=== PATIENT | male | born 1945 | race Caucasian/White ===

== ENCOUNTER → 2017-06-03 | Day surgery (SDC) | payer MEDICARE ==
[~2017-06-03] MED LIST: ADDE20TA OR; ARIP1TAB46; ASPI325T PO; ASPI81 PO; BUPIVACAINE/EPINEPHRINE 0.25% 50 ML VIAL ONE; BUPIVACAINE/EPINEPHRINE 0.5% 50 ML VIAL ONE; CRES20TA OR; KLOR20TA6 PO; LACTATED RINGER'S 1000 ML INJ 1,000 ML ONE; MIDAZOLAM HCL 2 MG/2 ML VIAL ONE; NADO20TA OR; NIFE60TA3 PO; ONDANSETRON HCL 4 MG/2 ML VIAL IV PUSH ONE; PROPOFOL 200 MG/20 ML AMP IV ONE; QUIN20TA22 PO; TAB-TAB PO; VIIB40TA PO; ZOLP10TA3; ceFAZolin INJ 1,000 MG VIAL ONE
--- NOTE | 2017-06-03 11:19 | TN ---
cc: ISIAH SIMPSON M.D. DATE OF SURGERY: 06/03/2017 PREOPERATIVE DIAGNOSIS 1. Malignant melanoma left posterior neck 0.75 mm. 2. Basal cell carcinoma left shoulder. 3. Pigmented lesion left medial shoulder. PROCEDURE PERFORMED 1. Wide local excision malignant melanoma left posterior neck 4 x 2 cm. 2. Wide local excision basal cell carcinoma left shoulder 4 x 2 cm. 3. Wide local excision pigmented lesion left shoulder 3 x 2 cm. SURGEON Isiah Simpson MD ANESTHESIA General LMA. COMPLICATIONS None. INDICATION FOR PROCEDURE Mr. 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 These lesions demonstrated a malignant melanoma on the left posterior neck, invasive basal cell carcinoma on the left shoulder. He was seen and evaluated and referred for surgical consideration. The patient was seen in the office and he was also noted to have a pigmented lesion between these two lesions that was very concerning. It was dark and raised and irregular. I recommended that be excised at the same time. The patient was agreeable. DETAILS OF PROCEDURE The patient was identified, brought to the operating room and placed supine on the operating table. After adequate general LMA anesthesia was achieved, the patient was gently turned into the right lateral decubitus position with appropriate padding for hips, knees, shoulders and ankles. Attention was first directed to the pigmented lesion in the left medial shoulder. 0.25% Marcaine was injected around the lesion. A 3 x 2 elliptical incision was made and the lesion was excised in toto. It was labeled a short stitch superior, long stitch lateral. It was sent to pathology. The wound was then closed in two layers using a 3-0 and 4-0 Vicryl. Attention was now directed to the basal cell carcinoma on the left lateral shoulder. It was anesthetized with 0.25% Marcaine. Elliptical 4 x 2 cm incision was made and subcutaneous tissue was dissected with sharp dissection. The lesion was excised in toto and a short stitch was placed superior, long stitch was placed lateral. Wound was again closed in two layers using a 3-0 and 4-0 Vicryl. Finally attention was directed to the malignant melanoma at the base of the posterior neck. 0.25% Marcaine was injected around the lesion. A 4 x 2 cm elliptical incision was used to excise the lesion in toto with generous 1 cm margins both anterior and posteriorly. The lesion was excised in toto. A short stitch was placed superior, long stitch was placed lateral and the specimen was sent to pathology for analysis. Wound was then irrigated and closed in two layers using a 3-0 and 4-0 Vicryl. Sterile dressings were applied to all lesions. The patient was then awakened, returned to the supine position and brought to recovery in stable condition. MD ZEN Harris/MORRIS /10:43 AM /10:51 AM
== END | disposition home or self-care (01) ==
LOC: ESDC 07:56
PROVIDERS: ATTEND Surgery Trauma Surgery
DX: C43.4 Malignant melanoma of scalp and neck (principal); C44.619 Basal cell carcinoma of skin of left upper limb, including shoulder; D18.00 Hemangioma unspecified site
CPT/HCPCS: 00300; 00400; 11403; 11604; 11624; 88305; J0690; J2250; J2405; J3010; J7120